=== PATIENT | male | born 1975 | race Two or more races ===

== ENCOUNTER 2017-10-22 19:15 | Emergency (ER) | payer MEDICAID ==
[~2017-10-22] VITALS: Ht 172.7 cm; Wt 74.8 kg
--- NOTE | 2017-10-22 19:43 | NUR ---
To room 2A accompanied by . Speaks Hungarian only; at bedside to interpret. Seen and evaluated by Dr. Hendricks.
[2017-10-22] MEDS ORDERED: CEPHALEXIN MONOHYDRATE 500 MG CAPSULE PO ONE (19:45)
[2017-10-22] MEDS ORDERED: NEOMY/BACITRA/POLYMYXIN B OINT UD PACKET TP ONE ×2 (19:45→20:03)
[2017-10-22] MEDS ORDERED: TDAP DIPH,PERTUSS,TET VAC/PF 0.5 ML DISP.SYRIN IM ONE ×2 (19:45→20:07)
[2017-10-22] MEDS ORDERED: HYDROCODONE/APAP 5-325MG TABLET PO ONE (19:45)
[2017-10-22] MEDS ORDERED: HYDROCODONE/APAP 5-325MG TABLET ONE (20:03)
[2017-10-22] MEDS ORDERED: CEPHALEXIN MONOHYDRATE 500 MG CAPSULE ONE (20:03)
--- NOTE | 2017-10-22 20:30 | NUR ---
Wound care treatment done.
--- NOTE | 2017-10-22 21:00 | NUR ---
Patient discharged to home in stable conditon. Written and verbal after care instructions given. Patient verbalizes understanding of instructions.
[2017-10-22 21:36] VITALS: BP 139/80
== END 2017-10-22 21:00 | disposition home or self-care (01) ==
LOC: ER 19:17
DX: S61.211A Laceration without foreign body of left index finger without damage to nail, initial encounter (principal); S61.213A Laceration without foreign body of left middle finger without damage to nail, initial encounter; W26.8XXA Contact with other sharp object(s), not elsewhere classified, initial encounter; Y93.89 Activity, other specified; Y92.89 Other specified places as the place of occurrence of the external cause; Y99.8 Other external cause status
CPT/HCPCS: 29130; 73140; 90471; 90715; 99284; A4217; A4663